=== PATIENT | female | born 1990 | race Caucasian/White ===

== ENCOUNTER 2018-11-26 17:08 | Emergency (ER) | payer OTHER ==
[~2018-11-26] VITALS: Ht 157.5 cm; Wt 82.6 kg
[2018-11-26 17:11] VITALS: BP 121/74
[2018-11-26] MEDS ORDERED: NACL 0.9% 1,000 ML IV ONE (17:25)
[2018-11-26] MEDS ORDERED: LOPERAMIDE 2 MG CAP PO ONE (17:25)
[2018-11-26 17:55] LABS: APPEARANCE,URINE CLEAR (CLEAR); BILIRUBIN,URINE NEGATIVE (NEGATIVE); BLOOD, URINE NEGATIVE (NEGATIVE); COLOR,URINE YELLOW (YELLOW); LEUKOCYTE ESTERASE ,URINE TRACE (NEGATIVE); NITRITE, URINE NEGATIVE (NEGATIVE); UGLUCOSE NEGATIVE (NEGATIVE)
[2018-11-26 17:57] LABS: BASOPHILS % (AUTO) 0.4 % (0.0-2.0); EOSINOPHILS # (AUTO) 0.1 K/uL (0-0.4); EOSINOPHILS % (AUTO) 0.8 % (0.0-4.0); HEMATOCRIT 35.8 % (36-48); HEMOGLOBIN 11.9 g/dL (12.0-16.0); LYMPHOCYTES # (AUTO) 1.2 K/uL (2.5-16.5); LYMPHOCYTES % (AUTO) 10.6 % (20.5-51.1); MEAN CORPUSCULAR HEMOGLOBIN 31 pg (27-31); MEAN CORPUSCULAR HGB CONC 33 g/dL (33-37); MEAN CORPUSCULAR VOLUME 91.7 fL (80-94); MONOCYTES # (AUTO) 0.6 K/uL (0.8-1.0); MONOCYTES % (AUTO) 5.2 % (1.7-9.3); NEUTROPHILS # (AUTO) 9.2 K/uL (1.8-7.7); PLATELET COUNT (AUTO) 306 K/uL (140-450); RED BLOOD CELL COUNT(AUTO) 3.91 MIL/uL (4.20-5.40); RED CELL DISTRIBUTION WIDTH 13.4 % (11.6-13.7); WHITE BLOOD COUNT (AUTO) 11.1 K/uL (4.8-10.8)
[2018-11-26 18:05] LABS: RBC,URINE 0-5 /HPF (0-5); WBC,URINE 0-5 /HPF (0-5)
[2018-11-26 18:14] LABS: ANION GAP 12.7 (8-16); CARBON DIOXIDE 24.9 mmol/L (21-32); CREATININE 0.6 mg/dL (0.6-1.3); POTASSIUM 3.6 mmol/L (3.5-5.1)
[2018-11-26 18:20] LABS: ALBUMIN 2.7 g/dL (3.4-5.0); TOTAL BILIRUBIN 0.2 mg/dL (0.0-1.0)
[2018-11-26 19:26] VITALS: BP 121/74
== END 2018-11-26 19:20 | disposition home or self-care (01) ==
LOC: MED 17:08
DX: O99.613 Diseases of the digestive system complicating pregnancy, third trimester (principal); R19.7 Diarrhea, unspecified; O21.2 Late vomiting of pregnancy; Z3A.32 32 weeks gestation of pregnancy
CPT/HCPCS: 36415; 76805; 80053; 81001; 81025; 85025; 96360; 96361; 99284; J7030; Q0092

== ENCOUNTER 2018-12-12 10:02 | Observation (INO) | payer OTHER ==
[~2018-12-12] VITALS: Ht 157.5 cm; Wt 81.6 kg
[2018-12-12 11:00] VITALS: BP 117/68
[2018-12-12 12:18] LABS: BASOPHILS % (AUTO) 0.4 % (0.0-2.0); EOSINOPHILS # (AUTO) 0.1 K/uL (0-0.4); EOSINOPHILS % (AUTO) 0.7 % (0.0-4.0); HEMOGLOBIN 11.9 g/dL (12.0-16.0); LYMPHOCYTES # (AUTO) 1.2 K/uL (2.5-16.5); LYMPHOCYTES % (AUTO) 11.4 % (20.5-51.1); MEAN CORPUSCULAR HEMOGLOBIN 31 pg (27-31); MEAN CORPUSCULAR HGB CONC 33 g/dL (33-37); MEAN CORPUSCULAR VOLUME 92.4 fL (80-94); MONOCYTES # (AUTO) 0.7 K/uL (0.8-1.0); MONOCYTES % (AUTO) 6.9 % (1.7-9.3); NEUTROPHILS # (AUTO) 8.5 K/uL (1.8-7.7); NEUTROPHILS % (AUTO) 80.6 % (42.2-75.2); PLATELET COUNT (AUTO) 289 K/uL (140-450); RED BLOOD CELL COUNT(AUTO) 3.89 MIL/uL (4.20-5.40); RED CELL DISTRIBUTION WIDTH 13.7 % (11.6-13.7); WHITE BLOOD COUNT (AUTO) 10.6 K/uL (4.8-10.8)
[2018-12-12] MEDS ORDERED: hydrOXYzine PAMOATE 25 MG CAP PO SCH (15:10)
[2018-12-12] MEDS ORDERED: PREN-380 PO (17:57)
== END 2018-12-12 19:10 | disposition home or self-care (01) ==
LOC: MLD 10:02
PROVIDERS: ADMIT Obstetrics & Gynecology; ATTEND Obstetrics & Gynecology
DX: O26.893 Other specified pregnancy related conditions, third trimester (principal); R10.9 Unspecified abdominal pain; O99.89 Other specified diseases and conditions complicating pregnancy, childbirth and the puerperium; M54.9 Dorsalgia, unspecified; M79.602 Pain in left arm; Z87.891 Personal history of nicotine dependence; Z3A.33 33 weeks gestation of pregnancy
CPT/HCPCS: 36415; 76805; 81000; 85025; 85384; 86886; 86900; 86901; G0378; Q0092; Q0177

== ENCOUNTER 2018-12-27 18:56 | Emergency (ER) | payer OTHER ==
[~2018-12-27] VITALS: Ht 165.1 cm; Wt 81.6 kg
[~2018-12-27 18:56] MED LIST: PREN-380 PO
[2018-12-27 19:15] VITALS: BP 130/82
[2018-12-27 20:34] LABS: BILIRUBIN,URINE NEGATIVE (NEGATIVE); BLOOD, URINE NEGATIVE (NEGATIVE); COLOR,URINE YELLOW (YELLOW); LEUKOCYTE ESTERASE ,URINE NEGATIVE (NEGATIVE); NITRITE, URINE NEGATIVE (NEGATIVE); PH,URINE 6.5 (5.0-9.0); UGLUCOSE NEGATIVE (NEGATIVE)
[2018-12-27] MEDS ORDERED: [UNRECOGNIZED DRUG - OTHER] (20:44)
[2018-12-27] MEDS ORDERED: CALCIUM (20:44)
[2018-12-27 20:45] LABS: APPEARANCE,URINE CLEAR (CLEAR)
[2018-12-27 20:49] VITALS: BP 114/64
[2018-12-27] MEDS ORDERED: guaiFENesin 20 MG/ML UDC PO SCH (21:30)
[2018-12-28 00:39] VITALS: BP 112/67
== END 2018-12-28 00:39 | disposition home or self-care (01) ==
LOC: MED 18:56 → MLD 19:50 → UNDOADMOB 19:50 → MED 19:50
DX: J45.909 Unspecified asthma, uncomplicated (principal); H92.09 Otalgia, unspecified ear; Z79.899 Other long term (current) drug therapy
CPT/HCPCS: 59025; 76819; 81003; 81025; 99284; Q0092

== ENCOUNTER 2019-01-10 22:50 | Inpatient (IN) | payer OTHER ==
[~2019-01-10] VITALS: Ht 160 cm; Wt 86.6 kg
[2019-01-10] MEDS: LACTATED RINGERS 1,000 ML IV SCH (00:43)
[~2019-01-10 22:50] MED LIST changes: +CALCIUM; +[UNRECOGNIZED DRUG - OTHER]
[2019-01-10] MEDS ORDERED: AMPICILLIN 2,000 MG in NACL 0.9% MINI-BAG PLUS 100 ML IV SCH (23:50)
[2019-01-10] MEDS ORDERED: PROMETHAZINE 25 MG/ML VIAL IVP PRN (23:50)
[2019-01-10] MEDS ORDERED: NALBUPHINE 10 MG/ML AMP IVP PRN (23:50)
[2019-01-11 00:21] LABS: BASOPHILS % (AUTO) 0.4 % (0.0-2.0); EOSINOPHILS % (AUTO) 0.5 % (0.0-4.0); HEMATOCRIT 36.7 % (36-48); HEMOGLOBIN 12.2 g/dL (12.0-16.0); LYMPHOCYTES # (AUTO) 1.5 K/uL (2.5-16.5); MEAN CORPUSCULAR HEMOGLOBIN 31 pg (27-31); MEAN CORPUSCULAR HGB CONC 33 g/dL (33-37); MEAN CORPUSCULAR VOLUME 91.9 fL (80-94); MONOCYTES # (AUTO) 0.4 K/uL (0.8-1.0); MONOCYTES % (AUTO) 4.2 % (1.7-9.3); NEUTROPHILS # (AUTO) 7.9 K/uL (1.8-7.7); NEUTROPHILS % (AUTO) 79.9 % (42.2-75.2); PLATELET COUNT (AUTO) 299 K/uL (140-450); RED BLOOD CELL COUNT(AUTO) 3.99 MIL/uL (4.20-5.40); RED CELL DISTRIBUTION WIDTH 14.4 % (11.6-13.7); WHITE BLOOD COUNT (AUTO) 9.9 K/uL (4.8-10.8)
[2019-01-11 00:27] LABS: APPEARANCE,URINE HAZY (CLEAR); BILIRUBIN,URINE NEGATIVE (NEGATIVE); BLOOD, URINE NEGATIVE (NEGATIVE); COLOR,URINE YELLOW (YELLOW); LEUKOCYTE ESTERASE ,URINE TRACE (NEGATIVE); NITRITE, URINE NEGATIVE (NEGATIVE); UGLUCOSE NEGATIVE (NEGATIVE)
[2019-01-11 00:46] LABS: RBC,URINE NONE SEEN /HPF (0-5); WBC,URINE 0-5 /HPF (0-5)
[2019-01-11] MEDS ORDERED: AMPICILLIN 2,000 MG VIAL ONE (01:07)
[2019-01-11 01:29] LABS: POTASSIUM 4.1 mmol/L (3.5-5.1)
[2019-01-11 01:30] LABS: ANION GAP 14.6 (8-16); CARBON DIOXIDE 22.5 mmol/L (21-32); CREATININE 0.7 mg/dL (0.6-1.3)
[2019-01-11 01:31] LABS: ALBUMIN 2.3 g/dL (3.4-5.0); TOTAL BILIRUBIN 0.2 mg/dL (0.0-1.0)
[2019-01-11] MEDS ORDERED: OXYTOCIN 20 UNITS in LACTATED RINGERS 1,000 ML IV SCH (02:10)
[2019-01-11] MEDS ORDERED: MISOPROSTOL 25 MCG TAB ONE ×2 (02:55→08:44)
[2019-01-11 03:55] VITALS: BP 120/74
[2019-01-11] MEDS ORDERED: INFLUENZA VACCINE QUAD 0.5 ML SYR IMVAC PRN (03:55)
[2019-01-11] MEDS ORDERED: AMPICILLIN 1,000 MG VIAL ONE ×2 (04:43→08:45)
[2019-01-11] MEDS: AMPICILLIN 1,000 MG in NACL 0.9% MINI-BAG PLUS 50 ML IV SCH ×2 (05:03→09:08)
[2019-01-11] MEDS ORDERED: MISOPROSTOL 25 MCG TAB VG SCH (06:00)
[2019-01-11 07:20] VITALS: BP 109/75
[2019-01-11] MEDS ORDERED: PROMETHAZINE 25 MG/ML VIAL ONE (10:41)
[2019-01-11] MEDS ORDERED: NALBUPHINE 10 MG/ML AMP ONE (10:43)
[2019-01-11] MEDS: LACTATED RINGERS 1,000 ML IV SCH (10:48)
[2019-01-11] MEDS ORDERED: OXYTOCIN 20 UNITS/LR PREMIX 1,000 ML IV ONE (10:50)
--- NOTE | 2019-01-11 11:07 | NUR ---
PATIENT HAS BEEN SCREENED AND CATEGORIZED LOW NUTRITION RISK. PATIENT WILL BE SEEN WITHIN 7 DAYS OF ADMISSION. 01/18/[address]
[2019-01-11] MEDS ORDERED: LIDOCAINE 1% 500 MG/50 ML VIAL ONE (11:22)
[2019-01-11] MEDS ORDERED: oxyCODONE/APAP 5/325 MG 1 TAB TAB PO PRN (13:05)
[2019-01-11] MEDS ORDERED: METHYLERGONOVINE 0.2 MG/ML AMP IM PRN (13:25)
[2019-01-11] MEDS ORDERED: OXYTOCIN 10 UNITS/ML VIAL IM PRN (13:25)
[2019-01-11] MEDS ORDERED: BENZOCAINE/MENTHOL 20%-0.5% 60 GM CAN TP PRN (13:25)
[2019-01-11] MEDS ORDERED: MEASLES, MUMPS, AND RUBELLA 1 VIAL SQVAC PRN (13:25)
[2019-01-11] MEDS ORDERED: TEMAZEPAM 15 MG CAP PO PRN (13:25)
[2019-01-11] MEDS: IBUPROFEN 800 MG TAB PO PRN ×2 (13:48→20:30)
[2019-01-11] MEDS ORDERED: DOCUSATE SOD/SENNA 50/8.6 MG 1 TAB PO SCH (21:00)
[2019-01-12] MEDS: IBUPROFEN 800 MG TAB PO PRN ×2 (02:28→16:57)
[2019-01-12 05:57] LABS: HEMATOCRIT 35.3 % (36-48); HEMOGLOBIN 11.3 g/dL (12.0-16.0)
[2019-01-12] MEDS ORDERED: BISACODYL 5 MG TABEC PO PRN (14:35)
[2019-01-12] MEDS ORDERED: DOCUSATE SOD/SENNA 50/8.6 MG 1 TAB PO SCH (21:00)
== END 2019-01-13 12:00 | disposition home or self-care (01) | DRG 807 ==
LOC: MLD 22:50 → MFCC 01-11 13:37
PROVIDERS: ADMIT Obstetrics & Gynecology; ATTEND Obstetrics & Gynecology
PROC: 10E0XZZ Delivery of Products of Conception, External Approach (ICD-10-PCS; principal; 2019-01-11)
PROC: 3E02340 Introduction of Influenza Vaccine into Muscle, Percutaneous Approach (ICD-10-PCS; 2019-01-11)
PROC: 3E0234Z Introduction of Serum, Toxoid and Vaccine into Muscle, Percutaneous Approach (ICD-10-PCS; 2019-01-11)
PROC: 3E0134Z Introduction of Serum, Toxoid and Vaccine into Subcutaneous Tissue, Percutaneous Approach (ICD-10-PCS; 2019-01-11)
PROC: 10907ZC Drainage of Amniotic Fluid, Therapeutic from Products of Conception, Via Natural or Artificial Opening (ICD-10-PCS; 2019-01-11)
PROC: 0HQ9XZZ Repair Perineum Skin, External Approach (ICD-10-PCS; 2019-01-11)
PROC: 3E0P7VZ Introduction of Hormone into Female Reproductive, Via Natural or Artificial Opening (ICD-10-PCS; 2019-01-11)
DX: O36.5930 Maternal care for other known or suspected poor fetal growth, third trimester, not applicable or unspecified (principal); Z37.0 Single live birth; Z3A.38 38 weeks gestation of pregnancy; Z23 Encounter for immunization; O70.0 First degree perineal laceration during delivery; O69.81X0 Labor and delivery complicated by cord around neck, without compression, not applicable or unspecified
CPT/HCPCS: 36415; 59200; 59409; 80053; 81001; 85018; 85025; 86592; 86886; 86900; 86901; 90715; J0290; J2001; J2300; J2550; J2590; J7120